=== PATIENT | male | born 1995 | race Hispanic/Latino ===

== ENCOUNTER 2022-12-03 07:33 | Emergency (ER) | payer SELFPAY ==
[~2022-12-03] VITALS: Ht 170.2 cm; Wt 59.1 kg
[2022-12-03 07:48] VITALS: BP 130/79
[2022-12-03 08:01] VITALS: BP 118/86
[2022-12-03 08:15] VITALS: BP 121/69
[2022-12-03 08:30] VITALS: BP 115/69
[2022-12-03 08:30] LABS: URINE BILIRUBIN - DIPSTICK NEGATIVE (NEGATIVE); URINE BLOOD DIPSTICK NEGATIVE (NEGATIVE); URINE COLOR YELLOW; URINE GLUCOSE - DIPSTICK NEGATIVE (NEGATIVE); URINE KETONE NEGATIVE (NEGATIVE); URINE LEUK ESTERASE NEGATIVE (NEGATIVE); URINE PH 7.5 (4.5-8.0); URINE PROTEIN - DIPSTICK NEGATIVE (NEG-TRACE); URINE SPECIFIC GRAVITY <=1.005; URINE UROBILINOGEN - DIPSTICK 0.2 E.U./dL (0.2)
[2022-12-03 08:31] LABS: URINE NITRITE - DIPSTICK NEGATIVE (Negative)
[2022-12-03] MEDS ORDERED: CIPROFLOXACN500 MG PO (11:20)
[2022-12-03 11:39] VITALS: BP 115/69
== END 2022-12-03 11:43 | disposition home or self-care (01) | DRG 690 ==
LOC: ED 07:33
PROVIDERS: Family Medicine
DX: N39.0 Urinary tract infection, site not specified (principal); Z87.442 Personal history of urinary calculi